=== PATIENT | male | born 1960 | race African-American/Black ===

== ENCOUNTER 2023-06-25 13:49 | Inpatient (IN) | payer MEDICARE, OTHER ==
[~2023-06-25] VITALS: Ht 182.9 cm; Wt 106.6 kg
[2023-06-25] MEDS ORDERED: QUET300T2 PO (14:26)
[2023-06-25] MEDS ORDERED: PROP20TA7 PO (14:26)
[2023-06-25] MEDS ORDERED: TAMS-3 PO (14:26)
[2023-06-25] MEDS ORDERED: DIVA500T2 PO (14:26)
[2023-06-25] MEDS ORDERED: OLAN20TA3 PO (14:26)
[2023-06-25] MEDS ORDERED: OLANZAPINE 10 MG VIAL IM ONE ×2 (15:43→15:45)
[2023-06-25] MEDS ORDERED: OLAN20TA24 PO (16:33)
[2023-06-25] MEDS ORDERED: OLAN10TA73 PO (16:33)
[2023-06-25 17:05] LABS: CALCIUM 9.5 mg/dL (8.5-10.1); CARBON DIOXIDE 25 mmol/L (21-32); CHLORIDE 105 mmol/L (98-107); CREATININE 1.1 mg/dL (0.6-1.3); GLUCOSE 89 mg/dL (74-106); POTASSIUM 4.6 mmol/L (3.5-5.1); SODIUM SERUM 138 mmol/L (136-145); UREA NITROGEN, BLOOD 23 mg/dL (7-18)
[2023-06-25 17:10] LABS: ETHANOL < 3 MG/DL (0-10)
[2023-06-25 17:11] LABS: ALANINE AMINOTRANSFERASE 16 U/L (16-63); ALBUMIN 3.3 g/dL (3.4-5.0); ALKALINE PHOSPHATASE 80 U/L (50-136); ASPARTATE AMINOTRANSFERASE 20 U/L (15-37); BILIRUBIN,TOTAL 0.5 mg/dL (0.2-1.0); TOTAL PROTEIN, SERUM 8.1 g/dL (6.4-8.2); VALPROIC ACID 73 ug/mL (50-100)
[2023-06-25 17:25] LABS: ACETAMINOPHEN < 2.0 ug/mL (10-30)
[2023-06-25 17:36] LABS: BILIRUBIN,DIRECT 0.1 mg/dL (0.0-0.2)
[2023-06-25] MEDS ORDERED: LACT10SO58 PO (18:17)
[2023-06-25] MEDS ORDERED: ATOR20TA PO (18:17)
[2023-06-25] MEDS ORDERED: FURO20TA4 PO (18:17)
[2023-06-25] MEDS ORDERED: DIVA250T4 PO (18:24)
[2023-06-25] MEDS ORDERED: PALI234D IM (18:24)
[2023-06-25 18:43] VITALS: BP 146/90; TEMP 98.2; O2SAT 98
[2023-06-25] MEDS ORDERED: BLOOD SUGAR DIAGNOSTIC 1 EACH STRIP VI ONE (19:30)
[2023-06-25] MEDS ORDERED: MAG HYDROX/AL HYDROX/SIMETH 30 ML LIQUID UDC PO PRN (19:30)
[2023-06-25] MEDS ORDERED: MAGNESIUM HYDROXIDE 30 ML LIQUID UDC PO PRN (19:30)
[2023-06-25 19:53] LABS: *BILIRUBIN,URIN NEGATIVE (NEGATIVE); *BLOOD, URINE NEGATIVE (NEGATIVE); *CLARITY,URINE CLEAR (CLEAR); *COLOR,URINE YELLOW (YELLOW); *KETONES,URINE 1+ (NEGATIVE); *PROTEIN,URINE NEGATIVE (NEGATIVE); LEUKOCYTE ESTERASE ,URINE NEGATIVE (NEGATIVE); NITRITE, URINE NEGATIVE (NEGATIVE); UGLUCOSE NEGATIVE (NEGATIVE)
[2023-06-25 19:54] LABS: RBC,URINE 0-3 /HPF (0-3); WBC,URINE 0-3 /HPF (0-3)
[2023-06-25 20:00] VITALS: BP 159/89; TEMP 98
[2023-06-25 20:06] LABS: *AMPHETAMINE, URINE NEGATIVE (NEGATIVE); *BARBITURATE, URINE NEGATIVE (NEGATIVE); *BENZODIAZEPINE, URINE NEGATIVE (NEGATIVE); *CANNABINOID, URINE NEGATIVE (NEGATIVE); *COCCAINE, URINE NEGATIVE (NEGATIVE); *OPIATE, URINE NEGATIVE (NEGATIVE); *PHENCYCLIDINE SCREEN,URINE NEGATIVE (NEGATIVE); FENTANYL, URINE NEGATIVE (NEGATIVE)
[2023-06-25] MEDS ORDERED: hydrALAZINE HCL 25 MG TABLET PO PRN (21:00)
[2023-06-25] MEDS: ATORVASTATIN 20 MG TABLET PO SCH (21:00)
[2023-06-25] MEDS: TAMSULOSIN HCL 0.4 MG CAP.SR.24H PO SCH (21:00)
[2023-06-25] MEDS ORDERED: FUROSEMIDE 20 MG TABLET PO PRN (21:00)
[2023-06-25] MEDS: ACETAMINOPHEN 325 MG TABLET PO PRN (23:17)
[2023-06-25] MEDS: TEMAZEPAM 7.5 MG CAPSULE PO PRN (23:17)
[2023-06-26] MEDS ORDERED: BISACODYL 5 MG TABLET.DR PO PRN (07:30)
[2023-06-26] MEDS: DOCUSATE SODIUM 100 MG CAPSULE PO SCH ×2 (08:15→20:35)
[2023-06-26] MEDS: PROPRANOLOL HCL 20 MG TABLET PO SCH ×2 (08:15→16:11)
[2023-06-26] MEDS: DIVALPROEX SPRINKLE 125 MG CAP.SPRINK PO SCH ×2 (09:00→20:35)
[2023-06-26] MEDS: OLANZAPINE ZYDIS 5 MG TAB.RAPDIS PO SCH ×2 (09:00→16:11)
[2023-06-26 15:12] VITALS: BP 152/117; TEMP 98.2; O2SAT 96
[2023-06-26] MEDS: OLANZAPINE 10 MG VIAL IM PRN (16:12)
[2023-06-26 20:00] VITALS: O2SAT 96
[2023-06-26] MEDS: ATORVASTATIN 20 MG TABLET PO SCH (20:35)
[2023-06-26] MEDS: TAMSULOSIN HCL 0.4 MG CAP.SR.24H PO SCH (20:35)
[2023-06-27 08:09] VITALS: BP 158/79; TEMP 98; O2SAT 99
[2023-06-27] MEDS: OLANZAPINE ZYDIS 5 MG TAB.RAPDIS PO SCH (08:56)
[2023-06-27] MEDS: DOCUSATE SODIUM 100 MG CAPSULE PO SCH ×2 (08:57→20:21)
[2023-06-27] MEDS: PROPRANOLOL HCL 20 MG TABLET PO SCH ×2 (09:00→17:53)
[2023-06-27] MEDS ORDERED: DIVALPROEX SPRINKLE 125 MG CAP.SPRINK PO SCH ×2 (09:15)
[2023-06-27] MEDS ORDERED: OLANZAPINE ZYDIS 5 MG TAB.RAPDIS PO SCH (09:15)
[2023-06-27] MEDS ORDERED: DIVALPROEX SPRINKLE 125 MG CAP.SPRINK PO ONE (09:15)
[2023-06-27] MEDS: CLONAZEPAM 0.5 MG TABLET PO PRN (13:02)
[2023-06-27] MEDS: ACETAMINOPHEN 325 MG TABLET PO PRN (13:02)
[2023-06-27 15:12] VITALS: BP 120/95; TEMP 98; O2SAT 99
[2023-06-27] MEDS: OLANZAPINE ZYDIS 5 MG TAB.RAPDIS SL SCH (17:54)
[2023-06-27] MEDS: DIVALPROEX SPRINKLE 125 MG CAP.SPRINK PO SCH ×2 (17:57→20:21)
[2023-06-27] MEDS ORDERED: OLANZAPINE 5 MG TABLET PO SCH (18:00)
[2023-06-27] MEDS: TAMSULOSIN HCL 0.4 MG CAP.SR.24H PO SCH (20:21)
[2023-06-27] MEDS: ATORVASTATIN 20 MG TABLET PO SCH (20:21)
[2023-06-27] MEDS: QUETIAPINE FUMARATE 25 MG TABLET PO SCH (20:22)
[2023-06-28] MEDS: CLONAZEPAM 0.5 MG TABLET PO PRN ×2 (06:02→13:42)
[2023-06-28 07:56] VITALS: BP 159/99; TEMP 98.2; O2SAT 98
[2023-06-28] MEDS: DIVALPROEX SPRINKLE 125 MG CAP.SPRINK PO SCH ×5 (08:36→21:00)
[2023-06-28] MEDS: OLANZAPINE ZYDIS 5 MG TAB.RAPDIS PO SCH (08:37)
[2023-06-28] MEDS: DOCUSATE SODIUM 100 MG CAPSULE PO SCH ×3 (08:38→21:00)
[2023-06-28] MEDS: PROPRANOLOL HCL 20 MG TABLET PO SCH ×3 (08:38→17:00)
[2023-06-28] MEDS: LISINOPRIL 5 MG TABLET PO SCH (13:42)
[2023-06-28 15:29] VITALS: BP 137/89; TEMP 98.2; O2SAT 98
[2023-06-28] MEDS: OLANZAPINE ZYDIS 5 MG TAB.RAPDIS SL SCH (17:34)
[2023-06-28] MEDS: OLANZAPINE 10 MG VIAL IM PRN (17:37)
[2023-06-28 20:00] VITALS: BP 145/80; O2SAT 98
[2023-06-28] MEDS: LACTULOSE 20 G/30 ML LIQUID UDC PO SCH ×2 (20:28→21:00)
[2023-06-28] MEDS: ATORVASTATIN 20 MG TABLET PO SCH ×2 (20:28→21:00)
[2023-06-28] MEDS: QUETIAPINE FUMARATE 25 MG TABLET PO SCH ×2 (20:29→21:00)
[2023-06-28] MEDS: TAMSULOSIN HCL 0.4 MG CAP.SR.24H PO SCH ×2 (20:29→21:00)
[2023-06-29] MEDS ORDERED: BISACODYL 10 MG SUPP.RECT RC ONE (07:30)
[2023-06-29 08:03] VITALS: BP 149/105; TEMP 98; O2SAT 99
[2023-06-29] MEDS: OLANZAPINE ZYDIS 5 MG TAB.RAPDIS PO SCH ×2 (08:20→09:00)
[2023-06-29] MEDS: LISINOPRIL 5 MG TABLET PO SCH ×2 (08:21→08:42)
[2023-06-29] MEDS: PROPRANOLOL HCL 20 MG TABLET PO SCH ×3 (08:21→16:33)
[2023-06-29] MEDS: DOCUSATE SODIUM 100 MG CAPSULE PO SCH ×3 (08:21→21:00)
[2023-06-29] MEDS: ENSURE ENLIVE (VAN) 240 ML LIQUID PO SCH ×2 (08:22→08:36)
[2023-06-29] MEDS: DIVALPROEX SPRINKLE 125 MG CAP.SPRINK PO SCH ×4 (08:22→21:00)
[2023-06-29] MEDS: LACTULOSE 20 G/30 ML LIQUID UDC PO SCH ×3 (08:22→21:00)
[2023-06-29] MEDS: OLANZAPINE 10 MG VIAL IM PRN ×2 (08:46→17:01)
[2023-06-29] MEDS ORDERED: risperiDONE-M 0.5 MG TAB.RAPDIS PO SCH (09:00)
[2023-06-29] MEDS: ARIPIPRAZOLE 5 MG TABLET PO SCH ×2 (11:00→16:33)
[2023-06-29 12:38] LABS: BASOPHILS % (AUTO) 0.7 % (0.0-2.0); EOSINOPHILS # (AUTO) 0.1 K/uL (0.0-0.7); EOSINOPHILS % (AUTO) 2.1 % (0.0-7.0); HEMOGLOBIN 15.5 g/dL (12.5-16.3); LYMPHOCYTES # (AUTO) 2.9 K/uL (0.8-4.8); LYMPHOCYTES % (AUTO) 43.6 % (20.5-51.5); MEAN CORPUSCULAR HEMOGLOBIN 30.4 uug (23.8-33.4); MEAN CORPUSCULAR HGB CONC 32 g/dL (32.5-36.3); MEAN CORPUSCULAR VOLUME 95.8 fL (73.0-96.2); MONOCYTES # (AUTO) 0.8 K/uL (0.1-1.30); MONOCYTES % (AUTO) 12.7 % (0.0-11.0); NEUTROPHILS # (AUTO) 2.7 K/uL (1.8-8.9); NEUTROPHILS % (AUTO) 40.9 % (38.5-71.5); PLATELET COUNT (AUTO) 128 K/uL (152-348); RED BLOOD CELL COUNT(AUTO) 5.11 MIL/uL (4.06-5.63); RED CELL DISTRIBUTION WIDTH 16.9 % (12.1-16.2); WHITE BLOOD COUNT (AUTO) 6.6 K/uL (3.6-10.2)
[2023-06-29 12:56] LABS: DIFFERENTIAL COMMENT 1
[2023-06-29 13:23] LABS: ALBUMIN 3.3 g/dL (3.4-5.0); BILIRUBIN,TOTAL 0.6 mg/dL (0.2-1.0); CALCIUM 9.6 mg/dL (8.5-10.1); CREATININE 1.3 mg/dL (0.6-1.3); MAGNESIUM 1.9 mg/dL (1.8-2.4); PHOSPHOROUS 3.7 mg/dL (2.5-4.9); POTASSIUM 4.5 mmol/L (3.5-5.1); TOTAL PROTEIN, SERUM 8.6 g/dL (6.4-8.2)
[2023-06-29 14:00] LABS: THYROID STIMULATING HORMONE 4.3 mIU/mL (0.358-3.740)
[2023-06-29 16:03] VITALS: BP 155/98; TEMP 98; O2SAT 98
[2023-06-29] MEDS: OLANZAPINE ZYDIS 5 MG TAB.RAPDIS SL SCH (17:01)
[2023-06-29] MEDS: BISACODYL 10 MG SUPP.RECT RC PRN (17:26)
[2023-06-29 19:45] VITALS: BP 126/78; TEMP 97; O2SAT 99
[2023-06-29] MEDS: ATORVASTATIN 20 MG TABLET PO SCH (20:50)
[2023-06-29] MEDS: TAMSULOSIN HCL 0.4 MG CAP.SR.24H PO SCH (20:51)
[2023-06-29] MEDS: QUETIAPINE FUMARATE 25 MG TABLET PO SCH (21:00)
[2023-06-30] MEDS: FLEET ENEMA 133 ML BOTTLE RC PRN (03:03)
[2023-06-30 07:58] VITALS: BP 131/89; TEMP 98.2; O2SAT 95
[2023-06-30] MEDS: OLANZAPINE 10 MG VIAL IM PRN (08:47)
[2023-06-30] MEDS: ARIPIPRAZOLE 5 MG TABLET PO SCH ×2 (08:49→16:34)
[2023-06-30] MEDS: DOCUSATE SODIUM 100 MG CAPSULE PO SCH ×2 (08:51→20:37)
[2023-06-30] MEDS: DIVALPROEX SPRINKLE 125 MG CAP.SPRINK PO SCH (08:51)
[2023-06-30] MEDS: OLANZAPINE ZYDIS 5 MG TAB.RAPDIS PO SCH (08:53)
[2023-06-30] MEDS: ENSURE ENLIVE (VAN) 240 ML LIQUID PO SCH (08:53)
[2023-06-30] MEDS: PROPRANOLOL HCL 20 MG TABLET PO SCH ×2 (08:54→16:34)
[2023-06-30] MEDS: LISINOPRIL 5 MG TABLET PO SCH (08:54)
[2023-06-30] MEDS: LACTULOSE 20 G/30 ML LIQUID UDC PO SCH ×2 (08:55→20:37)
[2023-06-30] MEDS ORDERED: risperiDONE-M 0.5 MG TAB.RAPDIS PO SCH (11:45)
[2023-06-30] MEDS ORDERED: OLANZAPINE 10 MG VIAL IM PRN ×3 (11:45→12:00)
[2023-06-30] MEDS: VALPROIC ACID 250 MG/5 ML LIQUID UDC PO SCH ×2 (13:00→16:34)
[2023-06-30] MEDS: BISACODYL 10 MG SUPP.RECT RC PRN (13:02)
[2023-06-30 16:27] VITALS: BP 159/100; TEMP 98; O2SAT 96
[2023-06-30] MEDS: OLANZAPINE ZYDIS 5 MG TAB.RAPDIS SL SCH (17:04)
[2023-06-30 20:05] VITALS: BP 145/94; TEMP 98.5; O2SAT 96
[2023-06-30] MEDS: TAMSULOSIN HCL 0.4 MG CAP.SR.24H PO SCH (20:37)
[2023-06-30] MEDS: ATORVASTATIN 20 MG TABLET PO SCH (20:37)
[2023-07-01 08:25] VITALS: BP 158/92; TEMP 98.1; O2SAT 96
[2023-07-01] MEDS: ENSURE ENLIVE (VAN) 240 ML LIQUID PO SCH (09:00)
[2023-07-01] MEDS: VALPROIC ACID 250 MG/5 ML LIQUID UDC PO SCH ×3 (09:00→17:33)
[2023-07-01] MEDS: DOCUSATE SODIUM 100 MG CAPSULE PO SCH ×2 (09:00→20:56)
[2023-07-01] MEDS: LACTULOSE 20 G/30 ML LIQUID UDC PO SCH ×2 (09:00→20:57)
[2023-07-01] MEDS: PROPRANOLOL HCL 20 MG TABLET PO SCH ×2 (09:00→17:34)
[2023-07-01] MEDS: ARIPIPRAZOLE 5 MG TABLET PO SCH ×3 (09:00→17:32)
[2023-07-01] MEDS: LISINOPRIL 5 MG TABLET PO SCH (09:19)
[2023-07-01] MEDS: CLONAZEPAM 0.5 MG TABLET PO PRN ×2 (09:19→20:56)
[2023-07-01] MEDS: OLANZAPINE ZYDIS 5 MG TAB.RAPDIS PO SCH (09:20)
[2023-07-01 16:53] VITALS: BP 119/92; TEMP 98; O2SAT 96
[2023-07-01] MEDS: OLANZAPINE ZYDIS 5 MG TAB.RAPDIS SL SCH (17:33)
[2023-07-01 20:00] VITALS: BP 109/61; TEMP 98.2; O2SAT 96
[2023-07-01] MEDS: ATORVASTATIN 20 MG TABLET PO SCH (20:56)
[2023-07-01] MEDS: TAMSULOSIN HCL 0.4 MG CAP.SR.24H PO SCH (20:56)
[2023-07-02 08:01] VITALS: BP 103/68; TEMP 98; O2SAT 95
[2023-07-02] MEDS: DOCUSATE SODIUM 100 MG CAPSULE PO SCH ×2 (09:00→20:47)
[2023-07-02] MEDS: LISINOPRIL 5 MG TABLET PO SCH (09:00)
[2023-07-02] MEDS: ENSURE ENLIVE (VAN) 240 ML LIQUID PO SCH ×2 (09:00→17:04)
[2023-07-02] MEDS: OLANZAPINE ZYDIS 5 MG TAB.RAPDIS PO SCH (09:36)
[2023-07-02] MEDS: ARIPIPRAZOLE 5 MG TABLET PO SCH ×3 (09:36→17:00)
[2023-07-02] MEDS: LACTULOSE 20 G/30 ML LIQUID UDC PO SCH ×2 (09:36→20:47)
[2023-07-02] MEDS: VALPROIC ACID 250 MG/5 ML LIQUID UDC PO SCH ×4 (09:37→20:47)
[2023-07-02] MEDS: PROPRANOLOL HCL 20 MG TABLET PO SCH ×2 (09:37→17:03)
[2023-07-02 16:39] VITALS: BP 105/79; TEMP 97.9; O2SAT 96
[2023-07-02] MEDS: OLANZAPINE ZYDIS 5 MG TAB.RAPDIS SL SCH (17:03)
[2023-07-02 20:00] VITALS: BP 99/57; TEMP 98; O2SAT 97
[2023-07-02] MEDS: ATORVASTATIN 20 MG TABLET PO SCH (20:47)
[2023-07-02] MEDS: TAMSULOSIN HCL 0.4 MG CAP.SR.24H PO SCH (20:48)
[2023-07-03 06:24] VITALS: BP 117/68; TEMP 98.2
[2023-07-03 06:25] VITALS: BP 117/68; TEMP 98.2; O2SAT 98
[2023-07-03 07:30] VITALS: BP 161/116; TEMP 98; O2SAT 98
[2023-07-03] MEDS ORDERED: VALPROIC ACID 250 MG/5 ML LIQUID UDC PO ONE (09:00)
[2023-07-03] MEDS: ENSURE ENLIVE (VAN) 240 ML LIQUID PO SCH ×3 (09:00→17:00)
[2023-07-03] MEDS: ARIPIPRAZOLE 5 MG TABLET PO SCH ×3 (10:18→17:58)
[2023-07-03] MEDS: OLANZAPINE ZYDIS 5 MG TAB.RAPDIS PO SCH (10:18)
[2023-07-03] MEDS: CLONAZEPAM 0.5 MG TABLET PO PRN (10:18)
[2023-07-03] MEDS: LISINOPRIL 5 MG TABLET PO SCH (10:18)
[2023-07-03] MEDS: LACTULOSE 20 G/30 ML LIQUID UDC PO SCH ×2 (10:19→20:34)
[2023-07-03] MEDS: PROPRANOLOL HCL 20 MG TABLET PO SCH ×2 (10:23→17:00)
[2023-07-03] MEDS: DOCUSATE SODIUM 100 MG CAPSULE PO SCH ×2 (10:47→20:34)
[2023-07-03 15:40] VITALS: BP 100/54; TEMP 98; O2SAT 99
[2023-07-03] MEDS: OLANZAPINE ZYDIS 5 MG TAB.RAPDIS SL SCH (17:58)
[2023-07-03 20:00] VITALS: BP 106/67; TEMP 96.7; O2SAT 98
[2023-07-03] MEDS: ATORVASTATIN 20 MG TABLET PO SCH (20:34)
[2023-07-03] MEDS: VALPROIC ACID 250 MG/5 ML LIQUID UDC PO SCH (20:34)
[2023-07-03] MEDS: TAMSULOSIN HCL 0.4 MG CAP.SR.24H PO SCH (20:34)
[2023-07-04] MEDS: BISACODYL 10 MG SUPP.RECT RC PRN (00:43)
[2023-07-04 07:30] VITALS: BP 90/49; TEMP 98; O2SAT 96
[2023-07-04] MEDS: PROPRANOLOL HCL 20 MG TABLET PO SCH ×2 (09:00→18:02)
[2023-07-04] MEDS: LISINOPRIL 5 MG TABLET PO SCH (09:00)
[2023-07-04] MEDS: ENSURE ENLIVE (VAN) 240 ML LIQUID PO SCH ×3 (09:14→17:00)
[2023-07-04] MEDS: LACTULOSE 20 G/30 ML LIQUID UDC PO SCH ×2 (09:14→20:50)
[2023-07-04] MEDS: OLANZAPINE ZYDIS 5 MG TAB.RAPDIS PO SCH (09:14)
[2023-07-04] MEDS: DOCUSATE SODIUM 100 MG CAPSULE PO SCH ×2 (09:14→20:49)
[2023-07-04] MEDS: ARIPIPRAZOLE 5 MG TABLET PO SCH ×3 (09:14→18:01)
[2023-07-04] MEDS: VALPROIC ACID 250 MG/5 ML LIQUID UDC PO SCH ×3 (11:26→20:50)
[2023-07-04 15:40] VITALS: BP 139/78; TEMP 98; O2SAT 98
[2023-07-04] MEDS: OLANZAPINE ZYDIS 5 MG TAB.RAPDIS SL SCH (18:01)
[2023-07-04 20:12] VITALS: BP 111/61; TEMP 98.2; O2SAT 96
[2023-07-04] MEDS: ATORVASTATIN 20 MG TABLET PO SCH (20:49)
[2023-07-04] MEDS: TAMSULOSIN HCL 0.4 MG CAP.SR.24H PO SCH (20:49)
[2023-07-05] MEDS: TEMAZEPAM 7.5 MG CAPSULE PO PRN (00:05)
[2023-07-05 08:15] VITALS: BP 137/95; TEMP 98; O2SAT 96
[2023-07-05 08:18] LABS: BASOPHILS # (AUTO) 0.1 K/UL (0.0-0.2); EOSINOPHILS # (AUTO) 0.2 K/uL (0.0-0.7); EOSINOPHILS % (AUTO) 3.1 % (0.0-7.0); HEMATOCRIT 43.8 % (36.7-47.1); HEMOGLOBIN 14.4 g/dL (12.5-16.3); LYMPHOCYTES # (AUTO) 2.3 K/uL (0.8-4.8); LYMPHOCYTES % (AUTO) 37.3 % (20.5-51.5); MEAN CORPUSCULAR HEMOGLOBIN 31.1 uug (23.8-33.4); MEAN CORPUSCULAR HGB CONC 33 g/dL (32.5-36.3); MEAN CORPUSCULAR VOLUME 94.6 fL (73.0-96.2); MONOCYTES # (AUTO) 0.6 K/uL (0.1-1.30); MONOCYTES % (AUTO) 10.2 % (0.0-11.0); NEUTROPHILS % (AUTO) 48.4 % (38.5-71.5); PLATELET COUNT (AUTO) 134 K/uL (152-348); RED BLOOD CELL COUNT(AUTO) 4.63 MIL/uL (4.06-5.63); RED CELL DISTRIBUTION WIDTH 16.3 % (12.1-16.2); WHITE BLOOD COUNT (AUTO) 6.2 K/uL (3.6-10.2)
[2023-07-05 08:19] LABS: DIFFERENTIAL COMMENT 1
[2023-07-05] MEDS: ARIPIPRAZOLE 5 MG TABLET PO SCH ×3 (08:27→17:34)
[2023-07-05] MEDS: LACTULOSE 20 G/30 ML LIQUID UDC PO SCH ×2 (08:28→21:05)
[2023-07-05] MEDS: LISINOPRIL 5 MG TABLET PO SCH (08:28)
[2023-07-05] MEDS: OLANZAPINE ZYDIS 5 MG TAB.RAPDIS PO SCH (08:28)
[2023-07-05] MEDS: DOCUSATE SODIUM 100 MG CAPSULE PO SCH ×2 (08:29→21:00)
[2023-07-05] MEDS: ENSURE ENLIVE (VAN) 240 ML LIQUID PO SCH ×3 (08:29→17:41)
[2023-07-05] MEDS: VALPROIC ACID 250 MG/5 ML LIQUID UDC PO SCH ×2 (08:48→17:41)
[2023-07-05] MEDS: PROPRANOLOL HCL 20 MG TABLET PO SCH ×2 (08:48→17:40)
[2023-07-05] MEDS ORDERED: MIRALAX 17 GM POWD.PACK PO SCH (09:00)
[2023-07-05 10:32] LABS: CALCIUM 9.5 mg/dL (8.5-10.1); CREATININE 1.5 mg/dL (0.6-1.3); POTASSIUM 4.4 mmol/L (3.5-5.1)
[2023-07-05] MEDS: MEGESTROL ACETATE 20 MG TABLET PO SCH ×2 (12:17→17:42)
[2023-07-05 15:16] VITALS: BP 104/62; TEMP 98; O2SAT 98
[2023-07-05] MEDS: OLANZAPINE ZYDIS 5 MG TAB.RAPDIS SL SCH (17:35)
[2023-07-05 20:16] VITALS: BP 112/64; TEMP 98.2; O2SAT 96
[2023-07-05] MEDS: ATORVASTATIN 20 MG TABLET PO SCH (21:00)
[2023-07-05] MEDS ORDERED: VALPROIC ACID 250 MG/5 ML LIQUID UDC PO SCH (21:00)
[2023-07-05] MEDS: TAMSULOSIN HCL 0.4 MG CAP.SR.24H PO SCH (21:06)
[2023-07-05] MEDS: FLEET ENEMA 133 ML BOTTLE RC PRN (21:06)
[2023-07-06 08:13] VITALS: BP 101/62; TEMP 98.2; O2SAT 100
[2023-07-06] MEDS ORDERED: HALOPERIDOL LACTATE 5 MG/1 ML VIAL IM SCH ×2 (09:00)
[2023-07-06] MEDS ORDERED: chlorproMAZINE 25 MG TABLET PO SCH (09:00)
[2023-07-06] MEDS ORDERED: HALOPERIDOL 5 MG TABLET PO SCH ×2 (09:00)
[2023-07-06] MEDS ORDERED: BENZTROPINE MESYLATE 0.5 MG TABLET PO SCH (09:00)
[2023-07-06] MEDS ORDERED: diphenhydrAMINE 50 MG/1 ML VIAL IV SCH (09:00)
[2023-07-06] MEDS ORDERED: chlorproMAZINE 50 MG/2 ML AMPUL IM SCH (09:00)
[2023-07-06] MEDS ORDERED: diphenhydrAMINE 50 MG/1 ML VIAL IM SCH (09:00)
[2023-07-06] MEDS ORDERED: CHLO100T17 IM (13:17)
[2023-07-06] MEDS ORDERED: NA P133E RC (13:17)
[2023-07-06] MEDS ORDERED: BISA10SU61 RC (13:17)
[2023-07-06] MEDS ORDERED: MAG355OR18 PO (13:17)
[2023-07-06] MEDS ORDERED: HYDR25TA86 PO (13:17)
[2023-07-06] MEDS ORDERED: MAGN400O6 PO (13:17)
[2023-07-06] MEDS ORDERED: VALP250S22 PO (13:17)
[2023-07-06] MEDS ORDERED: BENZ2AMP3 PO (13:17)
[2023-07-06] MEDS ORDERED: LACT-246 PO (13:17)
[2023-07-06] MEDS ORDERED: TEMA7.5C PO (13:17)
[2023-07-06] MEDS ORDERED: POLY17PO4 PO (13:17)
[2023-07-06] MEDS ORDERED: CHLO50TA13 PO (13:17)
[2023-07-06] MEDS ORDERED: PROP40TA7 PO (13:17)
[2023-07-06] MEDS ORDERED: CLON0.5T PO (13:17)
[2023-07-06] MEDS ORDERED: MEGE20TA4 PO (13:17)
[2023-07-06] MEDS ORDERED: ACET325C7 PO (13:17)
[2023-07-06] MEDS ORDERED: DOCU-141 PO (13:17)
[2023-07-06] MEDS ORDERED: DIPH25CA83 IM (13:17)
[2023-07-06] MEDS ORDERED: LISI20TA PO (13:17)
[2023-07-06] MEDS ORDERED: DIPH50VI15 IV (18:36)
== END 2023-07-06 10:50 | disposition short-term general hospital (02) | DRG 885 ==
LOC: ER 13:49 → GPS 15:33
PROVIDERS: ADMIT Psychiatry & Neurology Psychiatry; ATTEND Internal Medicine
DX: F25.0 Schizoaffective disorder, bipolar type (principal); N17.9 Acute kidney failure, unspecified; G93.40 Encephalopathy, unspecified; E66.9 Obesity, unspecified; Z68.34 Body mass index [BMI] 34.0-34.9, adult; E03.8 Other specified hypothyroidism; N40.0 Benign prostatic hyperplasia without lower urinary tract symptoms; K59.00 Constipation, unspecified; Z86.73 Personal history of transient ischemic attack (TIA), and cerebral infarction without residual deficits; I10 Essential (primary) hypertension; Z91.199 Patient's noncompliance with other medical treatment and regimen due to unspecified reason; Z91.148 Patient's other noncompliance with medication regimen for other reason; Z79.899 Other long term (current) drug therapy; F94.0 Selective mutism; E78.5 Hyperlipidemia, unspecified; R26.81 Unsteadiness on feet; F81.9 Developmental disorder of scholastic skills, unspecified
CPT/HCPCS: 36415; 71045; 74018; 80164; 83735; 84100; 84443; 84481; 85025; 93005; G0480; J2358

== ENCOUNTER 2023-07-06 11:38 | Inpatient (IN) | payer MEDICAID, MEDICARE ==
[~2023-07-06] VITALS: Ht 175.3 cm; Wt 119.1 kg
[~2023-07-06 11:38] MED LIST: ATOR20TA PO; FURO20TA4 PO; LACT10SO58 PO; PROP20TA7 PO; TAMS-3 PO
[2023-07-06] MEDS ORDERED: LACTULOSE 20 G/30 ML LIQUID UDC PO PRN (12:30)
[2023-07-06] MEDS ORDERED: MAGNESIUM HYDROXIDE 30 ML LIQUID UDC PO PRN (12:30)
[2023-07-06] MEDS ORDERED: ACETAMINOPHEN 325 MG TABLET PO PRN (12:30)
[2023-07-06] MEDS ORDERED: REMEDY ESSENTIAL ZINC PASTE 113 GM TP PRN (12:30)
[2023-07-06] MEDS ORDERED: ONDANSETRON 4 MG/2 ML VIAL IV PRN ×2 (12:30→18:45)
[2023-07-06] MEDS ORDERED: ACET325C7 PO (13:17)
[2023-07-06] MEDS ORDERED: NA P133E RC (13:17)
[2023-07-06] MEDS ORDERED: CHLO50TA13 PO (13:17)
[2023-07-06] MEDS ORDERED: LACT-246 PO (13:17)
[2023-07-06] MEDS ORDERED: DIPH25CA83 IM (13:17)
[2023-07-06] MEDS ORDERED: BISA10SU61 RC (13:17)
[2023-07-06] MEDS ORDERED: DOCU-141 PO (13:17)
[2023-07-06] MEDS ORDERED: MAG355OR18 PO (13:17)
[2023-07-06] MEDS ORDERED: HYDR25TA86 PO (13:17)
[2023-07-06] MEDS ORDERED: VALP250S22 PO (13:17)
[2023-07-06] MEDS ORDERED: LISI20TA PO (13:17)
[2023-07-06] MEDS ORDERED: MEGE20TA4 PO (13:17)
[2023-07-06] MEDS ORDERED: BENZ2AMP3 PO (13:17)
[2023-07-06] MEDS ORDERED: POLY17PO4 PO (13:17)
[2023-07-06] MEDS ORDERED: CLON0.5T PO (13:17)
[2023-07-06] MEDS ORDERED: TEMA7.5C PO (13:17)
[2023-07-06] MEDS ORDERED: MAGN400O6 PO (13:17)
[2023-07-06] MEDS ORDERED: CHLO100T17 IM (13:17)
[2023-07-06] MEDS ORDERED: PROP40TA7 PO (13:17)
[2023-07-06] MEDS ORDERED: FLEET ENEMA 133 ML BOTTLE RC PRN (13:45)
[2023-07-06] MEDS ORDERED: hydrALAZINE HCL 25 MG TABLET PO PRN (13:45)
[2023-07-06] MEDS ORDERED: BISACODYL 10 MG SUPP.RECT RC PRN (13:45)
[2023-07-06 15:17] VITALS: BP 115/80; TEMP 98.4; O2SAT 96
[2023-07-06] MEDS: IV D5 1/2 NS 1000 ML 1,000 ML IV PRN (15:39)
[2023-07-06] MEDS: CLONAZEPAM 1 MG TABLET PO PRN (17:13)
[2023-07-06] MEDS: MEGESTROL ACETATE 20 MG TABLET PO SCH (17:14)
[2023-07-06] MEDS: PROPRANOLOL HCL 20 MG TABLET PO SCH (17:14)
[2023-07-06] MEDS: ENSURE ENLIVE (VAN) 240 ML LIQUID PO SCH (17:14)
[2023-07-06] MEDS ORDERED: chlorproMAZINE 50 MG/2 ML AMPUL IM PRN (18:30)
[2023-07-06] MEDS ORDERED: DIPH50VI15 IV (18:36)
[2023-07-06] MEDS: VALPROIC ACID 250 MG/5 ML LIQUID UDC PO SCH (18:50)
[2023-07-06] MEDS: DOCUSATE SODIUM 100 MG CAPSULE PO SCH (20:16)
[2023-07-06] MEDS: TEMAZEPAM 7.5 MG CAPSULE PO PRN (20:16)
[2023-07-06] MEDS: ATORVASTATIN 20 MG TABLET PO SCH (20:16)
[2023-07-06] MEDS: TAMSULOSIN HCL 0.4 MG CAP.SR.24H PO SCH (20:16)
[2023-07-06 22:30] VITALS: BP 118/81; TEMP 98.6
[2023-07-07] MEDS: IV D5 1/2 NS 1000 ML 1,000 ML IV PRN (05:48)
[2023-07-07] MEDS: PANTOPRAZOLE SODIUM 40 MG TABLET.DR PO SCH (06:03)
[2023-07-07 06:23] VITALS: BP 111/72; TEMP 98.6
[2023-07-07 07:04] LABS: BASOPHILS % (AUTO) 0.8 % (0.0-2.0); EOSINOPHILS # (AUTO) 0.1 K/uL (0.0-0.7); EOSINOPHILS % (AUTO) 2.3 % (0.0-7.0); HEMATOCRIT 41.7 % (36.7-47.1); HEMOGLOBIN 13.7 g/dL (12.5-16.3); LYMPHOCYTES # (AUTO) 2.6 K/uL (0.8-4.8); MEAN CORPUSCULAR HEMOGLOBIN 31.2 uug (23.8-33.4); MEAN CORPUSCULAR HGB CONC 33 g/dL (32.5-36.3); MEAN CORPUSCULAR VOLUME 94.8 fL (73.0-96.2); MONOCYTES # (AUTO) 0.6 K/uL (0.1-1.30); MONOCYTES % (AUTO) 9.6 % (0.0-11.0); NEUTROPHILS # (AUTO) 2.7 K/uL (1.8-8.9); NEUTROPHILS % (AUTO) 44.3 % (38.5-71.5); PLATELET COUNT (AUTO) 93 K/uL (152-348); RED CELL DISTRIBUTION WIDTH 16.1 % (12.1-16.2)
[2023-07-07 07:21] LABS: BILIRUBIN,TOTAL 0.6 mg/dL (0.2-1.0); CALCIUM 9.2 mg/dL (8.5-10.1); CREATININE 1.3 mg/dL (0.6-1.3); MAGNESIUM 2.3 mg/dL (1.8-2.4); PHOSPHOROUS 3.8 mg/dL (2.5-4.9); TOTAL PROTEIN, SERUM 7.9 g/dL (6.4-8.2)
[2023-07-07 07:24] LABS: DIFFERENTIAL COMMENT 1
[2023-07-07] MEDS: VALPROIC ACID 250 MG/5 ML LIQUID UDC PO SCH ×3 (09:28→20:38)
[2023-07-07] MEDS: MEGESTROL ACETATE 20 MG TABLET PO SCH ×2 (09:29→17:20)
[2023-07-07] MEDS: chlorproMAZINE 25 MG TABLET PO SCH ×3 (09:29→17:21)
[2023-07-07] MEDS: DOCUSATE SODIUM 100 MG CAPSULE PO SCH ×2 (09:30→20:38)
[2023-07-07] MEDS: PROPRANOLOL HCL 20 MG TABLET PO SCH ×2 (09:30→17:20)
[2023-07-07] MEDS: MIRALAX 17 GM POWD.PACK PO SCH (09:31)
[2023-07-07] MEDS: ENSURE ENLIVE (VAN) 240 ML LIQUID PO SCH ×2 (09:32→17:50)
[2023-07-07 10:33] LABS: *BLOOD, URINE NEGATIVE (NEGATIVE); *CLARITY,URINE CLEAR (CLEAR); *COLOR,URINE YELLOW (YELLOW); *KETONES,URINE NEGATIVE (NEGATIVE); *PROTEIN,URINE TRACE (NEGATIVE); LEUKOCYTE ESTERASE ,URINE NEGATIVE (NEGATIVE); NITRITE, URINE NEGATIVE (NEGATIVE); UGLUCOSE NEGATIVE (NEGATIVE)
[2023-07-07 10:36] LABS: *BILIRUBIN,URIN 1+ (NEGATIVE)
[2023-07-07 10:41] LABS: *CREATININE,URINE 277.5 mg/dL (30-125); *URINE TOTAL PROTEIN RANDOM 19.1 mg/dL (<150/24HR)
[2023-07-07 10:47] LABS: BACTERIA,URINE FEW /HPF (NONE SEEN); RBC,URINE NONE SEEN /HPF (0-3); SQUAMOUS EPITHELIAL CELL,UR FEW /HPF (NONE SEEN); WBC,URINE 0-3 /HPF (0-3)
[2023-07-07 16:00] VITALS: BP 121/91; TEMP 97.6; O2SAT 96
[2023-07-07 20:00] VITALS: BP 111/73; TEMP 98.3; O2SAT 97
[2023-07-07] MEDS: ATORVASTATIN 20 MG TABLET PO SCH (20:38)
[2023-07-07] MEDS: CLONAZEPAM 1 MG TABLET PO PRN (20:38)
[2023-07-07] MEDS: TAMSULOSIN HCL 0.4 MG CAP.SR.24H PO SCH (20:38)
[2023-07-08] MEDS: TEMAZEPAM 7.5 MG CAPSULE PO PRN (01:32)
[2023-07-08 04:00] VITALS: BP 123/90; TEMP 98.6; O2SAT 97
[2023-07-08] MEDS: PANTOPRAZOLE SODIUM 40 MG TABLET.DR PO SCH (06:30)
[2023-07-08] MEDS: IV D5 1/2 NS 1000 ML 1,000 ML IV PRN ×3 (07:45→21:07)
[2023-07-08 07:51] LABS: CREATININE 1.3 mg/dL (0.6-1.3); POTASSIUM 4.6 mmol/L (3.5-5.1)
[2023-07-08 07:59] LABS: CALCIUM 9.2 mg/dL (8.5-10.1)
[2023-07-08] MEDS: ENSURE ENLIVE (VAN) 240 ML LIQUID PO SCH ×2 (08:00→17:00)
[2023-07-08 08:30] VITALS: BP 139/83; TEMP 98.8; O2SAT 99
[2023-07-08] MEDS: DOCUSATE SODIUM 100 MG CAPSULE PO SCH ×2 (09:00→20:54)
[2023-07-08] MEDS: MEGESTROL ACETATE 20 MG TABLET PO SCH ×2 (09:00→17:34)
[2023-07-08] MEDS: MIRALAX 17 GM POWD.PACK PO SCH (09:00)
[2023-07-08] MEDS: chlorproMAZINE 25 MG TABLET PO SCH ×4 (09:03→17:34)
[2023-07-08] MEDS: VALPROIC ACID 250 MG/5 ML LIQUID UDC PO SCH ×3 (09:03→20:51)
[2023-07-08] MEDS: PROPRANOLOL HCL 20 MG TABLET PO SCH ×2 (09:18→17:34)
[2023-07-08] MEDS: diphenhydrAMINE 50 MG/1 ML VIAL IV PRN ×2 (14:35→21:02)
[2023-07-08 18:43] VITALS: BP 118/73; TEMP 97.9; O2SAT 98
[2023-07-08 20:00] VITALS: BP 105/75; TEMP 98.2; O2SAT 94
[2023-07-08] MEDS ORDERED: chlorproMAZINE 50 MG/2 ML AMPUL IM ONE (20:30)
[2023-07-08] MEDS: ATORVASTATIN 20 MG TABLET PO SCH (20:54)
[2023-07-08] MEDS: TAMSULOSIN HCL 0.4 MG CAP.SR.24H PO SCH (20:54)
[2023-07-09 04:20] VITALS: BP 114/68; TEMP 98.7; O2SAT 96
[2023-07-09] MEDS: PANTOPRAZOLE SODIUM 40 MG TABLET.DR PO SCH (06:53)
[2023-07-09 07:41] LABS: CALCIUM 8.7 mg/dL (8.5-10.1); CREATININE 1.2 mg/dL (0.6-1.3)
[2023-07-09 07:50] LABS: POTASSIUM 4.9 mmol/L (3.5-5.1)
[2023-07-09 08:00] VITALS: BP 115/70; TEMP 98.7; O2SAT 97
[2023-07-09] MEDS: MIRALAX 17 GM POWD.PACK PO SCH (08:33)
[2023-07-09] MEDS: VALPROIC ACID 250 MG/5 ML LIQUID UDC PO SCH (08:34)
[2023-07-09] MEDS: MEGESTROL ACETATE 20 MG TABLET PO SCH (08:34)
[2023-07-09] MEDS: chlorproMAZINE 25 MG TABLET PO SCH ×2 (08:34→13:11)
[2023-07-09] MEDS: DOCUSATE SODIUM 100 MG CAPSULE PO SCH (08:34)
[2023-07-09] MEDS: PROPRANOLOL HCL 20 MG TABLET PO SCH (08:34)
[2023-07-09] MEDS: ENSURE ENLIVE (VAN) 240 ML LIQUID PO SCH (08:35)
[2023-07-09] MEDS: CLONAZEPAM 1 MG TABLET PO PRN ×2 (09:10→15:11)
[2023-07-09 10:06] LABS: PTH, INTACT 47 pg/mL (15-65)
[2023-07-09] MEDS: IV D5 1/2 NS 1000 ML 1,000 ML IV PRN (10:32)
[2023-07-09 11:55] LABS: CALCIUM 8.6 mg/dL (8.5-10.1); CREATININE 1.2 mg/dL (0.6-1.3); POTASSIUM 4.1 mmol/L (3.5-5.1)
[2023-07-09 13:00] VITALS: BP 102/61; TEMP 98.8; O2SAT 96
[2023-07-09 16:00] VITALS: BP 94/56; TEMP 98.1; O2SAT 95
[2023-07-10 05:07] LABS: A/G RATIO 0.7 (0.7-1.7); ALBUMIN 3.3 g/dL (2.9-4.4); ALPHA-1-GLOBULIN 0.2 g/dL (0.0-0.4); ALPHA-2-GLOBULIN 0.7 g/dL (0.4-1.0); BETA GLOBULIN 1.4 g/dL (0.7-1.3); GAMMA GLOBULIN 2.1 g/dL (0.4-1.8); GLOBULIN, TOTAL 4.5 g/dL (2.2-3.9); M-SPIKE Not Observed g/dL (Not Observed)
== END 2023-07-09 16:55 | DRG 426 ==
LOC: MEDSURG3 11:38
PROVIDERS: ADMIT Nurse Practitioner Acute Care; ATTEND Nurse Practitioner Acute Care
PROC: 05H533Z Insertion of Infusion Device into Right Subclavian Vein, Percutaneous Approach (ICD-10-PCS; principal; 2023-07-06)
PROC: B546ZZA Ultrasonography of Right Subclavian Vein, Guidance (ICD-10-PCS; principal; 2023-07-06)
DX: E87.0 Hyperosmolality and hypernatremia (principal); N17.0 Acute kidney failure with tubular necrosis; G93.40 Encephalopathy, unspecified; R62.7 Adult failure to thrive; F25.0 Schizoaffective disorder, bipolar type; Z68.38 Body mass index [BMI] 38.0-38.9, adult; E78.5 Hyperlipidemia, unspecified; I10 Essential (primary) hypertension; N40.0 Benign prostatic hyperplasia without lower urinary tract symptoms; E03.8 Other specified hypothyroidism; R62.50 Unspecified lack of expected normal physiological development in childhood; F29 Unspecified psychosis not due to a substance or known physiological condition; F30.2 Manic episode, severe with psychotic symptoms
CPT/HCPCS: 36415; 70450; 76770; 83735; 83970; 84100; 84155; 84165; 84300; 84443; 85025; A4663; G0378; J1200; J3230; Q0161

== ENCOUNTER 2023-07-09 17:00 | Inpatient (IN) | payer MEDICARE, OTHER ==
[~2023-07-09] VITALS: Ht 182.9 cm; Wt 112.5 kg
[~2023-07-09 17:00] MED LIST changes: +ACET325C7 PO; +BENZ2AMP3 PO; +BISA10SU61 RC; +CHLO100T17 IM; +CHLO50TA13 PO; +CLON0.5T PO; +DIPH50VI15 IV; +DOCU-141 PO; +HYDR25TA86 PO; +LACT-246 PO; +LISI20TA PO; +MAG355OR18 PO; +MAGN400O6 PO; +MEGE20TA4 PO; +NA P133E RC; +POLY17PO4 PO; +PROP40TA7 PO; +TEMA7.5C PO; +VALP250S22 PO
[2023-07-09] MEDS ORDERED: MAGNESIUM HYDROXIDE 30 ML LIQUID UDC PO PRN ×2 (19:45→20:15)
[2023-07-09] MEDS ORDERED: ACETAMINOPHEN 325 MG TABLET PO PRN ×2 (19:45→21:15)
[2023-07-09] MEDS ORDERED: TEMAZEPAM 7.5 MG CAPSULE PO PRN ×2 (19:45→20:15)
[2023-07-09] MEDS ORDERED: MAG HYDROX/AL HYDROX/SIMETH 30 ML LIQUID UDC PO PRN ×2 (19:45→20:15)
[2023-07-09] MEDS ORDERED: CLONAZEPAM 0.5 MG TABLET PO PRN (19:45)
[2023-07-09] MEDS ORDERED: BLOOD SUGAR DIAGNOSTIC 1 EACH STRIP VI ONE (19:45)
[2023-07-09 20:00] VITALS: BP 96/57; TEMP 97.8; O2SAT 98
[2023-07-09] MEDS ORDERED: FUROSEMIDE 20 MG TABLET PO PRN (20:15)
[2023-07-09] MEDS ORDERED: BISACODYL 10 MG SUPP.RECT RC PRN (20:15)
[2023-07-09] MEDS ORDERED: hydrALAZINE HCL 25 MG TABLET PO PRN (20:15)
[2023-07-09] MEDS ORDERED: FLEET ENEMA 133 ML BOTTLE RC PRN (20:15)
[2023-07-09] MEDS: TAMSULOSIN HCL 0.4 MG CAP.SR.24H PO SCH (21:00)
[2023-07-09] MEDS: ATORVASTATIN 20 MG TABLET PO SCH (21:00)
[2023-07-09] MEDS: DOCUSATE SODIUM 100 MG CAPSULE PO SCH (21:00)
[2023-07-10 07:30] VITALS: BP 115/76; TEMP 98.2; O2SAT 96
[2023-07-10] MEDS: ENSURE ENLIVE (VAN) 240 ML LIQUID PO SCH ×3 (08:00→16:24)
[2023-07-10] MEDS ORDERED: VALPROIC ACID 250 MG/5 ML LIQUID UDC PO SCH (09:00)
[2023-07-10] MEDS ORDERED: LISINOPRIL 5 MG TABLET PO SCH ×2 (09:00)
[2023-07-10] MEDS: MIRALAX 17 GM POWD.PACK PO SCH (09:59)
[2023-07-10] MEDS: DOCUSATE SODIUM 100 MG CAPSULE PO SCH ×3 (09:59→22:01)
[2023-07-10] MEDS: MEGESTROL ACETATE 20 MG TABLET PO SCH ×2 (10:01→16:24)
[2023-07-10 15:35] VITALS: BP 120/84; TEMP 98.2; O2SAT 98
[2023-07-10] MEDS: VALPROIC ACID 250 MG/5 ML LIQUID UDC PO SCH (16:08)
[2023-07-10] MEDS: chlorproMAZINE 25 MG TABLET PO SCH (16:08)
[2023-07-10 20:00] VITALS: BP 128/91; TEMP 98; O2SAT 97
[2023-07-10] MEDS: ATORVASTATIN 20 MG TABLET PO SCH ×2 (21:05→22:01)
[2023-07-10] MEDS: TAMSULOSIN HCL 0.4 MG CAP.SR.24H PO SCH ×2 (21:05→22:01)
[2023-07-10] MEDS: PROPRANOLOL HCL 20 MG TABLET PO SCH (22:00)
[2023-07-11 08:02] VITALS: BP 103/59; TEMP 98; O2SAT 98
[2023-07-11] MEDS: MIRALAX 17 GM POWD.PACK PO SCH (08:21)
[2023-07-11] MEDS: MEGESTROL ACETATE 20 MG TABLET PO SCH ×2 (08:21→16:15)
[2023-07-11] MEDS: VALPROIC ACID 250 MG/5 ML LIQUID UDC PO SCH ×3 (08:21→16:15)
[2023-07-11] MEDS: chlorproMAZINE 25 MG TABLET PO SCH (08:56)
[2023-07-11] MEDS: ENSURE ENLIVE (VAN) 240 ML LIQUID PO SCH ×3 (08:57→16:16)
[2023-07-11] MEDS: PROPRANOLOL HCL 20 MG TABLET PO SCH ×2 (09:52→20:26)
[2023-07-11 16:17] VITALS: BP 127/64; TEMP 98; O2SAT 99
[2023-07-11 20:00] VITALS: BP 129/72; TEMP 98; O2SAT 98
[2023-07-11] MEDS: DOCUSATE SODIUM 100 MG CAPSULE PO SCH (20:17)
[2023-07-11] MEDS: ATORVASTATIN 20 MG TABLET PO SCH (20:17)
[2023-07-11] MEDS: TAMSULOSIN HCL 0.4 MG CAP.SR.24H PO SCH (20:22)
[2023-07-11] MEDS: QUETIAPINE FUMARATE 200 MG TABLET PO SCH (20:22)
[2023-07-12 07:13] LABS: BASOPHILS % (AUTO) 0.7 % (0.0-2.0); EOSINOPHILS # (AUTO) 0.3 K/uL (0.0-0.7); HEMATOCRIT 39.7 % (36.7-47.1); LYMPHOCYTES # (AUTO) 2.5 K/uL (0.8-4.8); LYMPHOCYTES % (AUTO) 40.4 % (20.5-51.5); MEAN CORPUSCULAR HEMOGLOBIN 30.7 uug (23.8-33.4); MEAN CORPUSCULAR HGB CONC 33 g/dL (32.5-36.3); MEAN CORPUSCULAR VOLUME 93.6 fL (73.0-96.2); MONOCYTES # (AUTO) 0.5 K/uL (0.1-1.30); MONOCYTES % (AUTO) 7.5 % (0.0-11.0); NEUTROPHILS # (AUTO) 2.9 K/uL (1.8-8.9); NEUTROPHILS % (AUTO) 47.4 % (38.5-71.5); PLATELET COUNT (AUTO) 71 K/uL (152-348); RED BLOOD CELL COUNT(AUTO) 4.25 MIL/uL (4.06-5.63); RED CELL DISTRIBUTION WIDTH 15.2 % (12.1-16.2); WHITE BLOOD COUNT (AUTO) 6.2 K/uL (3.6-10.2)
[2023-07-12 07:28] LABS: DIFFERENTIAL COMMENT 1
[2023-07-12 07:40] LABS: ALANINE AMINOTRANSFERASE 6 U/L (16-63); ALBUMIN 2.7 g/dL (3.4-5.0); ALKALINE PHOSPHATASE 77 U/L (50-136); BILIRUBIN,TOTAL 0.4 mg/dL (0.2-1.0); CALCIUM 9.2 mg/dL (8.5-10.1); CARBON DIOXIDE 26 mmol/L (21-32); CHLORIDE 110 mmol/L (98-107); CREATININE 1.2 mg/dL (0.6-1.3); GLUCOSE 99 mg/dL (74-106); POTASSIUM 4.3 mmol/L (3.5-5.1); SODIUM SERUM 143 mmol/L (136-145); TOTAL PROTEIN, SERUM 7.4 g/dL (6.4-8.2); UREA NITROGEN, BLOOD 26 mg/dL (7-18); VALPROIC ACID 50 ug/mL (50-100)
[2023-07-12 07:46] LABS: ASPARTATE AMINOTRANSFERASE < 5 U/L (15-37)
[2023-07-12 08:02] VITALS: BP 105/72; TEMP 98.4; O2SAT 96
[2023-07-12] MEDS: PROPRANOLOL HCL 20 MG TABLET PO SCH ×2 (09:00→20:26)
[2023-07-12] MEDS: MIRALAX 17 GM POWD.PACK PO SCH (09:58)
[2023-07-12] MEDS: VALPROIC ACID 250 MG/5 ML LIQUID UDC PO SCH ×3 (09:58→17:38)
[2023-07-12] MEDS: DOCUSATE SODIUM 100 MG CAPSULE PO SCH (09:58)
[2023-07-12] MEDS: MEGESTROL ACETATE 20 MG TABLET PO SCH ×2 (09:59→17:39)
[2023-07-12] MEDS: ENSURE ENLIVE (VAN) 240 ML LIQUID PO SCH ×3 (10:00→17:39)
[2023-07-12 15:51] VITALS: BP 123/76; TEMP 98; O2SAT 96
[2023-07-12] MEDS ORDERED: LITHIUM CARBONATE 150 MG CAPSULE PO SCH (17:00)
[2023-07-12 19:56] VITALS: BP 112/68; TEMP 98.1; O2SAT 96
[2023-07-12] MEDS: DOCUSATE SODIUM 100 MG/10 ML LIQUID UDC PO SCH (20:18)
[2023-07-12] MEDS: TAMSULOSIN HCL 0.4 MG CAP.SR.24H PO SCH (20:18)
[2023-07-12] MEDS: ATORVASTATIN 20 MG TABLET PO SCH (20:18)
[2023-07-12] MEDS: QUETIAPINE FUMARATE 200 MG TABLET PO SCH (20:19)
[2023-07-13 07:30] VITALS: BP 120/69; TEMP 98.4; O2SAT 98
[2023-07-13] MEDS: DOCUSATE SODIUM 100 MG/10 ML LIQUID UDC PO SCH ×2 (10:26→22:02)
[2023-07-13] MEDS: MIRALAX 17 GM POWD.PACK PO SCH (10:26)
[2023-07-13] MEDS: VALPROIC ACID 250 MG/5 ML LIQUID UDC PO SCH ×3 (10:27→17:16)
[2023-07-13] MEDS: MEGESTROL ACETATE 20 MG TABLET PO SCH ×2 (10:27→17:16)
[2023-07-13] MEDS: PROPRANOLOL HCL 20 MG TABLET PO SCH ×2 (10:28→22:01)
[2023-07-13] MEDS: ENSURE ENLIVE (VAN) 240 ML LIQUID PO SCH ×3 (10:28→17:17)
[2023-07-13 15:44] VITALS: BP 101/93; TEMP 98; O2SAT 98
[2023-07-13 20:09] VITALS: BP 118/78; TEMP 98.3; O2SAT 96
[2023-07-13] MEDS: QUETIAPINE FUMARATE 200 MG TABLET PO SCH (22:01)
[2023-07-13] MEDS: TAMSULOSIN HCL 0.4 MG CAP.SR.24H PO SCH (22:02)
[2023-07-13] MEDS: ATORVASTATIN 20 MG TABLET PO SCH (22:02)
[2023-07-14 07:46] VITALS: BP 144/84; TEMP 98.4; O2SAT 96
[2023-07-14] MEDS: MEGESTROL ACETATE 20 MG TABLET PO SCH ×2 (08:40→17:17)
[2023-07-14] MEDS: VALPROIC ACID 250 MG/5 ML LIQUID UDC PO SCH ×3 (08:40→17:17)
[2023-07-14] MEDS: DOCUSATE SODIUM 100 MG/10 ML LIQUID UDC PO SCH ×2 (08:40→21:07)
[2023-07-14] MEDS: PROPRANOLOL HCL 20 MG TABLET PO SCH ×2 (08:41→21:07)
[2023-07-14] MEDS: ENSURE ENLIVE (VAN) 240 ML LIQUID PO SCH ×3 (08:42→17:18)
[2023-07-14] MEDS: MIRALAX 17 GM POWD.PACK PO SCH (08:42)
[2023-07-14 16:13] VITALS: BP 125/80; TEMP 98.1; O2SAT 96
[2023-07-14 20:00] VITALS: BP 115/92; TEMP 97.6; O2SAT 97
[2023-07-14] MEDS: ATORVASTATIN 20 MG TABLET PO SCH (20:37)
[2023-07-14] MEDS: QUETIAPINE FUMARATE 200 MG TABLET PO SCH (20:37)
[2023-07-14] MEDS: TAMSULOSIN HCL 0.4 MG CAP.SR.24H PO SCH (21:07)
[2023-07-15] MEDS: ENSURE ENLIVE (VAN) 240 ML LIQUID PO SCH ×3 (08:00→17:00)
[2023-07-15] MEDS: DOCUSATE SODIUM 100 MG/10 ML LIQUID UDC PO SCH ×2 (08:15→22:31)
[2023-07-15] MEDS: VALPROIC ACID 250 MG/5 ML LIQUID UDC PO SCH ×3 (08:15→17:20)
[2023-07-15] MEDS: PROPRANOLOL HCL 20 MG TABLET PO SCH ×2 (08:16→22:31)
[2023-07-15] MEDS: MEGESTROL ACETATE 20 MG TABLET PO SCH ×2 (08:17→17:20)
[2023-07-15 08:18] VITALS: BP 119/81; TEMP 98; O2SAT 98
[2023-07-15] MEDS: MIRALAX 17 GM POWD.PACK PO SCH (09:46)
[2023-07-15 16:21] VITALS: BP 112/76; TEMP 98; O2SAT 98
[2023-07-15 19:52] VITALS: BP 116/78; TEMP 98.1; O2SAT 96
[2023-07-15] MEDS: ATORVASTATIN 20 MG TABLET PO SCH (22:30)
[2023-07-15] MEDS: TAMSULOSIN HCL 0.4 MG CAP.SR.24H PO SCH (22:30)
[2023-07-15] MEDS: QUETIAPINE FUMARATE 200 MG TABLET PO SCH (22:30)
[2023-07-16 07:55] VITALS: BP 161/90; TEMP 98; O2SAT 97
[2023-07-16] MEDS: ENSURE ENLIVE (VAN) 240 ML LIQUID PO SCH ×3 (09:34→17:20)
[2023-07-16] MEDS: VALPROIC ACID 250 MG/5 ML LIQUID UDC PO SCH ×3 (09:34→17:18)
[2023-07-16] MEDS: DOCUSATE SODIUM 100 MG/10 ML LIQUID UDC PO SCH ×2 (09:34→20:50)
[2023-07-16] MEDS: MEGESTROL ACETATE 20 MG TABLET PO SCH ×2 (09:36→17:20)
[2023-07-16] MEDS: MIRALAX 17 GM POWD.PACK PO SCH (09:36)
[2023-07-16] MEDS: PROPRANOLOL HCL 20 MG TABLET PO SCH ×2 (09:36→20:50)
[2023-07-16 16:06] VITALS: BP 116/73; TEMP 98; O2SAT 97
[2023-07-16] MEDS: LITHIUM CARBONATE 150 MG CAPSULE PO SCH (17:18)
[2023-07-16 20:04] VITALS: BP 142/74; TEMP 98.1; O2SAT 96
[2023-07-16] MEDS: TAMSULOSIN HCL 0.4 MG CAP.SR.24H PO SCH (20:50)
[2023-07-16] MEDS: ATORVASTATIN 20 MG TABLET PO SCH (20:50)
[2023-07-16] MEDS: QUETIAPINE FUMARATE 200 MG TABLET PO SCH (20:51)
[2023-07-17] MEDS: PROPRANOLOL HCL 20 MG TABLET PO SCH ×2 (09:00→20:16)
[2023-07-17] MEDS: DOCUSATE SODIUM 100 MG/10 ML LIQUID UDC PO SCH ×2 (09:18→20:15)
[2023-07-17] MEDS: VALPROIC ACID 250 MG/5 ML LIQUID UDC PO SCH ×2 (09:18→12:47)
[2023-07-17] MEDS: LITHIUM CARBONATE 150 MG CAPSULE PO SCH ×2 (09:19→17:24)
[2023-07-17] MEDS: MEGESTROL ACETATE 20 MG TABLET PO SCH ×2 (09:19→17:26)
[2023-07-17] MEDS: ENSURE ENLIVE (VAN) 240 ML LIQUID PO SCH ×3 (09:20→17:26)
[2023-07-17] MEDS: MIRALAX 17 GM POWD.PACK PO SCH (09:26)
[2023-07-17 09:44] VITALS: BP 103/64; TEMP 98; O2SAT 98
[2023-07-17 15:36] VITALS: BP 113/62; TEMP 98; O2SAT 96
[2023-07-17] MEDS: DIVALPROEX SPRINKLE 125 MG CAP.SPRINK PO SCH (17:25)
[2023-07-17 19:42] VITALS: BP 116/69; TEMP 98.2; O2SAT 96
[2023-07-17] MEDS: ATORVASTATIN 20 MG TABLET PO SCH (20:15)
[2023-07-17] MEDS: TAMSULOSIN HCL 0.4 MG CAP.SR.24H PO SCH (20:16)
[2023-07-17] MEDS: QUETIAPINE FUMARATE 200 MG TABLET PO SCH (20:17)
[2023-07-18 07:47] VITALS: BP 105/69; TEMP 98.2; O2SAT 96
[2023-07-18] MEDS: LITHIUM CARBONATE 150 MG CAPSULE PO SCH ×2 (08:26→16:53)
[2023-07-18] MEDS: DIVALPROEX SPRINKLE 125 MG CAP.SPRINK PO SCH ×3 (08:26→16:53)
[2023-07-18] MEDS: ENSURE ENLIVE (VAN) 240 ML LIQUID PO SCH ×3 (08:27→17:00)
[2023-07-18] MEDS: DOCUSATE SODIUM 100 MG/10 ML LIQUID UDC PO SCH ×2 (08:27→20:30)
[2023-07-18] MEDS: PROPRANOLOL HCL 20 MG TABLET PO SCH ×2 (08:28→20:32)
[2023-07-18] MEDS: MIRALAX 17 GM POWD.PACK PO SCH (08:29)
[2023-07-18] MEDS: MEGESTROL ACETATE 20 MG TABLET PO SCH ×2 (08:29→16:53)
[2023-07-18 15:27] VITALS: BP 129/87; TEMP 98; O2SAT 100
[2023-07-18 20:00] VITALS: BP 105/66; TEMP 98.8; O2SAT 95
[2023-07-18] MEDS: ATORVASTATIN 20 MG TABLET PO SCH (20:32)
[2023-07-18] MEDS: QUETIAPINE FUMARATE 200 MG TABLET PO SCH (20:32)
[2023-07-18] MEDS: TAMSULOSIN HCL 0.4 MG CAP.SR.24H PO SCH (20:32)
[2023-07-19 08:00] VITALS: BP 110/64; TEMP 97.6; O2SAT 97
[2023-07-19] MEDS: DIVALPROEX SPRINKLE 125 MG CAP.SPRINK PO SCH ×3 (08:54→16:43)
[2023-07-19] MEDS: LITHIUM CARBONATE 150 MG CAPSULE PO SCH ×2 (08:54→16:42)
[2023-07-19] MEDS: PROPRANOLOL HCL 20 MG TABLET PO SCH ×2 (08:54→20:47)
[2023-07-19] MEDS: DOCUSATE SODIUM 100 MG/10 ML LIQUID UDC PO SCH ×2 (08:54→20:46)
[2023-07-19] MEDS: MIRALAX 17 GM POWD.PACK PO SCH (08:55)
[2023-07-19] MEDS: MEGESTROL ACETATE 20 MG TABLET PO SCH ×2 (08:55→16:42)
[2023-07-19] MEDS: ENSURE ENLIVE (VAN) 240 ML LIQUID PO SCH ×3 (08:56→16:43)
[2023-07-19 15:59] VITALS: BP 98/68; TEMP 97.2; O2SAT 97
[2023-07-19 16:44] VITALS: BP 107/70; O2SAT 98
[2023-07-19 19:58] VITALS: BP 106/66; TEMP 97.8; O2SAT 96
[2023-07-19] MEDS: TAMSULOSIN HCL 0.4 MG CAP.SR.24H PO SCH (20:48)
[2023-07-19] MEDS: ATORVASTATIN 20 MG TABLET PO SCH (20:48)
[2023-07-19] MEDS: QUETIAPINE FUMARATE 200 MG TABLET PO SCH (20:48)
[2023-07-20 08:05] VITALS: BP 122/75; TEMP 98; O2SAT 98
[2023-07-20] MEDS: DIVALPROEX SPRINKLE 125 MG CAP.SPRINK PO SCH ×2 (08:45→13:47)
[2023-07-20] MEDS: LITHIUM CARBONATE 150 MG CAPSULE PO SCH (08:45)
[2023-07-20] MEDS: MEGESTROL ACETATE 20 MG TABLET PO SCH (08:45)
[2023-07-20] MEDS: PROPRANOLOL HCL 20 MG TABLET PO SCH (08:46)
[2023-07-20] MEDS: MIRALAX 17 GM POWD.PACK PO SCH (08:46)
[2023-07-20] MEDS: DOCUSATE SODIUM 100 MG/10 ML LIQUID UDC PO SCH (08:46)
[2023-07-20] MEDS: ENSURE ENLIVE (VAN) 240 ML LIQUID PO SCH ×2 (08:47→12:45)
[2023-07-20 16:24] VITALS: BP 121/68; TEMP 98; O2SAT 99
== END 2023-07-20 16:15 | disposition home health service (06) | DRG 885 ==
LOC: GPS 17:00
PROVIDERS: ADMIT Psychiatry & Neurology Psychiatry; ATTEND Internal Medicine
DX: F25.0 Schizoaffective disorder, bipolar type (principal); N17.0 Acute kidney failure with tubular necrosis; F79 Unspecified intellectual disabilities; R62.7 Adult failure to thrive; Z68.33 Body mass index [BMI] 33.0-33.9, adult; E03.8 Other specified hypothyroidism; F94.0 Selective mutism; Z79.899 Other long term (current) drug therapy; Z88.8 Allergy status to other drugs, medicaments and biological substances; Z91.199 Patient's noncompliance with other medical treatment and regimen due to unspecified reason; R26.81 Unsteadiness on feet; N40.0 Benign prostatic hyperplasia without lower urinary tract symptoms; E66.9 Obesity, unspecified; I10 Essential (primary) hypertension; K59.00 Constipation, unspecified; E78.5 Hyperlipidemia, unspecified; Z87.820 Personal history of traumatic brain injury
CPT/HCPCS: 36415; 70030-TC; 80164; 85025; Q0161